=== PATIENT | male | born 1990 | race Two or more races ===

== ENCOUNTER 2017-08-29 21:10 | Emergency (ER) | payer SELFPAY ==
[2017-08-29] MEDS ORDERED: cefTRIAXone 1 GM in Premix Bag 1 BAG IV ONE (21:12)
[2017-08-29] MEDS ORDERED: Diphtheria,Pertussis(Acell),Tetanus Vaccine 0.5 ML Syringe IM ONE (21:12)
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
[2017-08-29] MEDS ORDERED: Lidocaine 1% 20 ML MDV INJECT ONE (21:52)
[2017-08-29] MEDS ORDERED: cefTRIAXone 1,000 MG in Sodium Chloride 0.9% 50 ML IV ONE (21:58)
[2017-08-29] MEDS ORDERED: Ketorolac 30 MG/ML SDV IVPUSH ONE (22:57)
[2017-08-29] MEDS ORDERED: Ondansetron 4 MG/2 ML SDV IVPUSH ONE (22:57)
[2017-08-29] MEDS ORDERED: Ketorolac 30 MG/ML SDV ONE (23:05)
[2017-08-29] MEDS ORDERED: Bacitracin Oint 1 GM U/D Packet ONE (23:16)
[2017-08-29] MEDS ORDERED: Bacitracin Oint 1 GM U/D Packet TOP ONE (23:20)
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
== END 2017-08-29 23:30 | disposition home or self-care (01) ==
LOC: MW.ED 21:10
DX: S06.0X9A Concussion with loss of consciousness of unspecified duration, initial encounter (principal); S01.81XA Laceration without foreign body of other part of head, initial encounter; Z23 Encounter for immunization; V18.9XXA Unspecified pedal cyclist injured in noncollision transport accident in traffic accident, initial encounter; Y93.55 Activity, bike riding
CPT/HCPCS: 12013; 70450; 71045; 72125; 72170; 90471; 90715; 96365; 96375; 99285; J0696; J1885; J2405; J7050

== ENCOUNTER 2017-09-04 20:10 | Emergency (ER) | payer OTHER | END 2017-09-04 21:30 | disposition home or self-care (01) | LOC: MW.ED 20:10 | DX: S01.81XD Laceration without foreign body of other part of head, subsequent encounter (principal); V18.9XXD Unspecified pedal cyclist injured in noncollision transport accident in traffic accident, subsequent encounter ==